=== PATIENT | female | born 1980 | race Caucasian/White ===

== ENCOUNTER 2024-01-13 15:01 | Emergency (ER) | payer OTHER ==
[2024-01-13 15:06] VITALS: BP 136/88; PULSE 91; RESP 18; TEMP 98.5; BMI 30.9
[2024-01-13] MEDS ORDERED: DIPHTH,PERTUSS(ACELL),TET 0.5 ML DISP.SYRIN IM ONE (16:04)
[2024-01-13] MEDS: DIPHTH,PERTUSS(ACELL),TET 0.5 ML DISP.SYRIN IM ONE (16:05)
[2024-01-13] MEDS ORDERED: ACETAMINOPHEN 500 MG TABLET (FP) ONE (16:35)
[2024-01-13] MEDS: ACETAMINOPHEN 500 MG TABLET (FP) PO ONE (16:35)
== END 2024-01-13 16:56 | disposition home or self-care (01) ==
LOC: JERFT 15:01
PROC: 0HQGXZZ Repair Left Hand Skin, External Approach (ICD-10-PCS; principal; 2024-01-13)
PROC: 3E0234Z Introduction of Serum, Toxoid and Vaccine into Muscle, Percutaneous Approach (ICD-10-PCS; 2024-01-13)
DX: S61.412A Laceration without foreign body of left hand, initial encounter (principal); W26.8XXA Contact with other sharp object(s), not elsewhere classified, initial encounter; Z23 Encounter for immunization
CPT/HCPCS: 90715; 99284-25

== ENCOUNTER 2024-01-20 12:43 | Emergency (ER) | payer OTHER ==
[2024-01-20 15:23] VITALS: BP 109/72; PULSE 80; RESP 18; TEMP 98
== END 2024-01-20 14:35 | disposition home or self-care (01) ==
LOC: JERFT 12:43
DX: Z48.02 Encounter for removal of sutures (principal)
CPT/HCPCS: 99281-25